=== PATIENT | male | born 1960 | race Caucasian/White ===

== ENCOUNTER 2024-07-15 09:36 | Day surgery (SDC) | payer BC, SELFPAY ==
[2024-07-14 08:55] VITALS: BMI 26.2
[2024-07-15] MEDS: LACTATED RINGERS 1000ML 1,000 ML 50 ML IV (10:11)
[2024-07-15 10:13] VITALS: BP 160/96; PULSE 57; RESP 18; TEMP 36.2; O2SAT 97
--- NOTE | 2024-07-15 10:59 | P.PNANES_ITS ---
[facility] Disclaimer: The information contained in this section may have been updated after the patient was seen, as this information can be updated by other users. Medical History Thyroid disease Hyperlipidemia Internal hemorrhoids Exocrine pancreatic insufficiency GERD (gastroesophageal reflux disease) Diverticulosis Congenital sucrose intolerance Surgical History History of tonsillectomy and adenoidectomy H/O hand surgery Family History Mother Brain cancer Social History Smoking Status: Never smoker alcohol intake: current substance use type: denies use current occupational status: employed Travel in the last 8 weeks?: None Have you lived/traveled outside [place] in past 30 days?: No Contact w/someone who lives/traveled outside [place] past 30 days?: No Exposure to someone with infectious disease in past 14 days?: No Do you have a fever (greater than 100.4 F or 38 C)?: No Have you tested positive for COVID-19?: No Exposed to someone with COVID-19 in past 14 days?: No Do you have a sore throat?: No Do you have a cough?: No Do you have any weakness?: No Do you have any diarrhea?: No Are you experiencing any unusual bleeding?: No Do you have any muscle aches/pain?: No Do you have any abdominal pain?: No Are you experiencing loss of taste or smell?: No [facility] Anesthesia Checklist Patient Identification Patient Identification: Arm Band Structural Data Admitted From: Home Planned Operative Procedure/s: Colonoscopy Consent for Planned Operative Procedure(s) Verified: Yes Verified Documents: Surgical Consent and History and Physical NPO Status Verified Time NPO: 06:00 (finished prep) Additional verifications Anesthesia Reactions: No Airway Assessment Mallampati Score:: Class II C-Spine Mobility Assessed: Yes TMJ Mobility Assessed: Yes Dentition: Good Dentition Neurological Assessment Level of Consciousness: Awake, Alert and Appropriate Anesthesia Plan Anesthesia Risk discussed: Yes Anesthesia Plan: Verified ASA Class: II Anesthesia Type: MAC
--- NOTE | 2024-07-15 11:05 | EXP.HP ---
History of Present Illness *Admission Date: 07/15/24 *Reason for visit:: Personal history of adenomatous colon polyps *History of present illness: Mr. Cooper is a 64-year-old gentleman who is here for follow-up surveillance colonoscopy secondary to a personal history of adenomatous colon polyps. The examination is deemed medically necessary for surveillance colonoscopy. The patient has been seen, interviewed and examined prior to the procedure by both myself and the anesthesia provider. [facility] Disclaimer: The information contained in this section may have been updated after the patient was seen, as this information can be updated by other users. Medical History Thyroid disease Hyperlipidemia Internal hemorrhoids Exocrine pancreatic insufficiency GERD (gastroesophageal reflux disease) Diverticulosis Congenital sucrose intolerance Surgical History History of tonsillectomy and adenoidectomy H/O hand surgery Family History Mother Brain cancer Social History Smoking Status: Never smoker alcohol intake: current substance use type: denies use current occupational status: employed Travel in the last 8 weeks?: None Have you lived/traveled outside [place] in past 30 days?: No Contact w/someone who lives/traveled outside [place] past 30 days?: No Exposure to someone with infectious disease in past 14 days?: No Do you have a fever (greater than 100.4 F or 38 C)?: No Have you tested positive for COVID-19?: No Exposed to someone with COVID-19 in past 14 days?: No Do you have a sore throat?: No Do you have a cough?: No Do you have any weakness?: No Do you have any diarrhea?: No Are you experiencing any unusual bleeding?: No Do you have any muscle aches/pain?: No Do you have any abdominal pain?: No Are you experiencing loss of taste or smell?: No Review of Systems Review of Systems Review of systems (narrative): Negative *Cardiovascular Comments: Negative *Gastrointestinal Comments: Negative *Genitourinary Comments: Negative *Musculoskeletal Comments: Negative *Neurologic Comments: Negative Meds Home Medications and Allergies Home Medications ?Medication ?Instructions ?Recorded ?Confirmed ?Type glucosamine [id number] 2 tab PO DAILY 05/04/24 07/14/24 History obie 1,500 mg-400 unit-100 mg tablet (Osteo Bi-Flex (5-Loxin)) levothyroxine 25 mcg tablet 25 mcg PO DAILY 05/04/24 07/14/24 History nebivolol 2.5 mg tablet 2.5 mg PO DAILY 05/04/24 07/14/24 History omeprazole 20 mg capsule,delayed 20 mg PO DAILY 05/04/24 07/14/24 History release sildenafil 100 mg tablet (Viagra) 100 mg PO DAILY PRN Sexual Activity 05/04/24 07/14/24 History simvastatin 10 mg tablet 20 mg PO DAILY 05/04/24 07/14/24 History New Prescriptions to Start Prescriptions: Allergies Allergy/AdvReac Type Severity Reaction Status Date / Time No Known Allergies Allergy Verified 07/14/24 08:56 Exam Data for Last 24 hours Vital signs and Labs for Last 24 Hours: Temp Pulse Resp BP Pulse Ox O2 Del Method 97.1 F L 57 L 18 160/96 H 97 Room Air 07/15/24 10:13 07/15/24 10:13 07/15/24 10:13 07/15/24 10:13 07/15/24 10:13 07/15/24 10:13 I & O for Last 24 hours: Intake & Output 07/12/24 07/13/24 07/14/24 07/15/24 23:59 23:59 23:59 23:59 Weight 210 lb *Routine HEENT Exam Head: Present normocephalic Eye: Present EOMI and PERRL ENT: Present mucous membranes moist *Routine Neck Exam Neck: Present supple *Routine Respiratory Exam Respiratory: Present CTA bilaterally *Routine Cardiovascular Exam Cardiovascular: Present RRR *Routine Abdominal Exam Abdominal: Present soft and normoactive bowel sounds; Absent tenderness *Routine Rectal Exam Rectal:: deferred *Routine Genitalia Exam Genitalia:: deferred *Routine Extremities Exam Extremities: Absent cyanosis, clubbing or edema *Routine Skin Exam Skin: Present warm; Absent rash *Routine Neurological Exam Neurological: Present alert and oriented X3 Assessment and Plan *Assessment and plan (1) Personal history of adenomatous and serrated colon polyps: Status: Acute Category: Medical Code(s): Z86.0101 - Personal history of adenomatous and serrated colon polyps Plan A/P: 1. Personal history of adenomatous colon polyps is the preprocedural diagnosis. The patient will be anesthetized/sedated using MAC sedation. The patient has been seen and examined. Cardiac and lung assessment prior to the examination is stable. Proceed with planned surveillance colonoscopy.
--- NOTE | 2024-07-15 11:17 | P.PCN_ITS ---
[facility] Procedure Note Date: 07/15/24 Time: 11:33 Procedure Note:: Colonoscopy Procedure Report: Colonoscopy with cold snare polypectomy Endoscopist: Luiz Ortiz II, MD Referring physician: Foreign [place] MD Date of Procedure: July 15, 2024 Equipment: Olympus 190 variable stiffness pediatric colonoscope Sedation: MAC sedation Indication: Mr. Cooper is a 64-year-old gentleman who is here for follow-up surveillance colonoscopy secondary to a personal history of adenomatous colon polyps. The patient does have a long history of bowel frequency and bowel urgency. He never seemed to improve with psyllium fiber or Konsyl. He did have enzyme testing and was found to have EPI (lower fecal elastase) and CSID (low sucrase activity). However, he did not respond well to Creon and found Sucraid expensive and prohibitive because of refrigeration. He did not take St[place]way. He derive some improvement with Beano. He does have a personal history of adenomatous polyps and his last colonoscopy was December 2021. The patient over the last couple of months has had spotting of bright red blood in his underwear. His last colonoscopy in December 2021 did show grade 1-2 internal hemorrhoids. He also had some left-sided diverticulosis. He reports no anorectal pain or discomfort. There is no itching. He does have some excessive wiping intermittently. He reports no abdominal pain, weight loss or bloating. He is not on any anticoagulation or NSAIDs. He does have some right shoulder arthritis and is using THC balm which has really helped. Procedure: Prior to the procedure, a history and physical exam was performed, and patient's medications and allergies were reviewed. The risks, benefits and alternatives of the sedation and procedure were discussed with the patient. All questions were answered and informed consent was obtained. The patient was brought to the procedure room. Patient identification and proposed procedure were verified by the physician and the nurse. The patient was placed in a left lateral decubitus position and the scope was passed under direct vision. Throughout the procedure, the patient's blood pressure, pulse, and oxygen saturations were monitored continuously. The colonoscopy was accomplished without difficulty. The patient tolerated the procedure well. Findings: On digital rectal examination there was normal rectal tone. There were no external hemorrhoids. The colonoscope was introduced through the anal canal to the rectum and advanced to the cecum. The ileocecal valve and appendiceal orifice were identified. The scope was advanced a short distance into the ileum which appeared grossly normal. The scope was then withdrawn into the colon. The cecum, ascending and transverse colon and mucosa were grossly normal. There were scattered diverticuli throughout the descending and sigmoid colon (LEFT colon). There were 2 diminutive 3 and 4 mm polyps (hyperplastic appearing polyps) in the distal sigmoid colon removed via cold snare polypectomy. The rectum itself was normal. Upon retroflexion within the rectum there were grade 2 internal hemorrhoids. The hemorrhoid cushions/columns were ablated/coagulated using monopolar ablation. The preparation was excellent throughout with [place] Preparation Score of 9. The cecal time was 12 minutes. Impression: 1. Diminutive colonic polyps x 2 (probable hyperplastic polyps) 2. Left-sided diverticulosis 3. Grade 2 internal hemorrhoids status post monopolar ablation/coagulation Plan: I will follow-up the polyp histology and discussed the findings with the patient and family. I would still recommend some form of fiber bulk and would consider FiberCon tablets 2 tablets every morning. The patient's last EGD was in January 2022 and there was short tongues of salmon-colored mucosa but the biopsy showed no Cardoso's esophagus. The patient does have some chronic GERD.
[2024-07-15 11:37] VITALS: BP 99/63; PULSE 57; RESP 16; TEMP 36.6; O2SAT 97
[2024-07-15 11:47] VITALS: BP 90/63; PULSE 54; RESP 16; O2SAT 98
[2024-07-15 11:57] VITALS: BP 118/74; PULSE 53; RESP 16; O2SAT 98
[2024-07-15 12:07] VITALS: BP 125/74; PULSE 53; RESP 16; O2SAT 97
== END 2024-07-15 12:07 | disposition home or self-care (01) ==
PROVIDERS: PCP Internal Medicine; Visit Provider Internal Medicine Gastroenterology
PROC: 0DJD8ZZ Inspection of Lower Intestinal Tract, Via Natural or Artificial Opening Endoscopic (ICD-10-PCS; CPT 45378; principal; 2024-07-15 11:30)
DX: Z12.11 Encounter for screening for malignant neoplasm of colon (principal); K63.5 Polyp of colon; K57.30 Diverticulosis of large intestine without perforation or abscess without bleeding; K64.1 Second degree hemorrhoids; E07.9 Disorder of thyroid, unspecified; E78.5 Hyperlipidemia, unspecified; K21.9 Gastro-esophageal reflux disease without esophagitis; Z86.0101 Personal history of adenomatous and serrated colon polyps; Z79.899 Other long term (current) drug therapy; Z79.890 Hormone replacement therapy
CPT/HCPCS: 45385; 46930; J7120